=== PATIENT | male | born 1965 | race Caucasian/White ===

== ENCOUNTER 2017-01-14 13:13 | Emergency (ER) | payer OTHER ==
[2017-01-14] MEDS ORDERED: SERTRALINE HYDR25 MG PO (13:25)
[2017-01-14] MEDS ORDERED: NEXIUM20 MG PO (13:25)
[2017-01-14 14:07] VITALS: BP 159/82
== END 2017-01-14 14:13 | disposition home or self-care (01) ==
LOC: ED 13:13
DX: S61.212A Laceration without foreign body of right middle finger without damage to nail, initial encounter (principal); W26.0XXA Contact with knife, initial encounter; Y93.G3 Activity, cooking and baking; Y92.000 Kitchen of unspecified non-institutional (private) residence as the place of occurrence of the external cause
CPT/HCPCS: 5930; A4550